=== PATIENT | male | born 1950 | race Caucasian/White ===

== ENCOUNTER 2019-12-03 07:59 | Day surgery (SDC) | payer MEDICARE, OTHER ==
[~2019-12-03] VITALS: Ht 180.3 cm; Wt 116.6 kg
[~2019-12-03 07:59] MED LIST: AMLO5 PO; Accupril20 MG PO; CIPR500 PO; CLIN300 PO; GLUCAGEN1 MG/1 ML IM; Glucosamine Ch1 EAC4 PO; HYDCHL12.5 PO; HYDCHL25 PO; HYDR1TAB94 PO; Humalog100 UNIT/3 SC; INSUASPI SC; INSULANPEN SC; Tylenol325 MG PO; XARELTO20 M1 PO; XARELTO20 MG PO
--- NOTE | 2019-12-03 09:48 | NUR ---
12/03/19 0948 Ashli [facility] (Monica 10ML SALINE INJECTED FOR ASCENDING COLON POLYP REMOVAL.
== END 2019-12-03 10:50 | disposition home or self-care (01) ==
LOC: ORSCSDS 07:59
PROVIDERS: Internal Medicine Gastroenterology
PROC: 0DBL8ZX Excision of Transverse Colon, Via Natural or Artificial Opening Endoscopic, Diagnostic (ICD-10-PCS; principal; 2019-12-03 09:45)
PROC: 0DBP8ZX Excision of Rectum, Via Natural or Artificial Opening Endoscopic, Diagnostic (ICD-10-PCS; principal; 2019-12-03 09:45)
PROC: 0DBK8ZX Excision of Ascending Colon, Via Natural or Artificial Opening Endoscopic, Diagnostic (ICD-10-PCS; principal; 2019-12-03 09:45)
DX: Z12.11 Encounter for screening for malignant neoplasm of colon (principal); D12.2 Benign neoplasm of ascending colon; D12.3 Benign neoplasm of transverse colon; K62.1 Rectal polyp; K57.30 Diverticulosis of large intestine without perforation or abscess without bleeding; I10 Essential (primary) hypertension; E11.9 Type 2 diabetes mellitus without complications; E78.5 Hyperlipidemia, unspecified; N18.4 Chronic kidney disease, stage 4 (severe); Z86.718 Personal history of other venous thrombosis and embolism; Z79.4 Long term (current) use of insulin; Z79.84 Long term (current) use of oral hypoglycemic drugs; Z79.899 Other long term (current) drug therapy
CPT/HCPCS: 82947; 88305; J2704; J7120

== ENCOUNTER 2020-09-17 18:07 | Inpatient (IN) | payer MEDICARE, OTHER ==
[~2020-09-17] VITALS: Ht 180.3 cm; Wt 107.0 kg
[~2020-09-17 18:07] MED LIST changes: +HUMALOG KW100 UNIT/1 SC; -Humalog100 UNIT/3 SC
[2020-09-17 18:39] LABS: Base Excess Venous -15.9 mmol/L; Bicarbonate Venous 13.3 mmol/L (24.0-30.0); PCO2 Venous 28.8 mmHg (38-42); PO2 Venous 46.9 mmHg (38-42); pH Blood Venous 7.22 (7.34-7.37)
[2020-09-17 18:42] LABS: BASOPHILS ABSOLUTE AUTO 0.04 K/mm3 (0.00-0.23); BASOPHILS PERCENT AUTO 0 % (0-2); EOSINOPHILS ABSOLUTE AUTO 0.02 K/mm3 (0.00-0.68); EOSINOPHILS PERCENT AUTO 0 % (0-6); Hematocrit 38.6 % (37.0-53.0); Hemoglobin 12.9 g/dL (13.5-17.5); IMMATURE GRAN ABSOLUTE AUTO 0.09 K/mm3 (0.00-0.10); IMMATURE GRAN PERCENT AUTO 1 % (0-1); LYMPHOCYTES PERCENT AUTO 6 % (21-46); MONOCYTES ABSOLUTE AUTO 0.99 K/mm3 (0.16-1.47); MONOCYTES PERCENT AUTO 7 % (4-13); Mean Corpuscular HGB 29.8 pg (26.0-34.0); Mean Corpuscular HGB Conc 33.4 g/dL (31.5-36.5); Mean Corpuscular Volume 89 fL (80-100); Mean Platelet Volume 10.2 fL (9.1-12.4); NEUTROPHILS ABSOLUTE AUTO 13.03 K/mm3 (1.96-9.15); NEUTROPHILS PERCENT AUTO 86 % (41-73); Platelet Count 272 K/mm3 (150-400); RDW Coefficient Variation 13.1 % (11.7-14.2); Red Blood Cell Count 4.33 M/mm3 (4.30-5.90); White Blood Cell Count 15.07 K/mm3 (4.00-11.30)
[2020-09-17 19:03] LABS: Albumin, Blood 2.8 g/dL (3.4-5.0); Albumin/Globulin Ratio 0.7 (0.8-1.8); Beta-hydroxybutyrate 32.6 mg/dL (0.2-2.8); Bilirubin, Total 0.5 mg/dL (0.1-1.0); Calcium, Blood 9.1 mg/dL (8.5-10.1); Creatinine, Blood 3.83 mg/dL (0.60-1.20); Globulin, Blood 4.1 g/dL (2.2-4.0); Potassium, Blood 4.7 mmol/L (3.5-5.5); Total Protein, Blood 6.9 g/dL (6.4-8.2)
[2020-09-17 20:12] LABS: International Normalized Ratio 1.22; Prothrombin Time Results 12.9 Sec (9.7-11.5)
[2020-09-17 20:29] LABS: Source, Urine Clean Catch
[2020-09-17 20:31] LABS: Bilirubin, Urine Neg (Neg); Blood, Urine 5+ (Neg); Glucose Qualitative, Urine 4+ (Neg); Ketones, Urine 2+ (Neg); Leukocyte Esterase, Urine 3+ (Neg); Nitrite, Urine Neg (Neg); Protein, Urine 2+ (Neg); Specific Gravity, Urine 1.015 (1.003-1.022); Urobilinogen, Urine NORM (Normal)
[2020-09-17 20:32] LABS: Appearance, Urine Hazy (Clear); Color, Urine Yellow (P-Yellow)
[2020-09-17 20:33] LABS: Squamous Epithelial Cells Rare /hpf (Few)
[2020-09-17 20:34] LABS: Bacteria Few /hpf
[2020-09-17] MEDS ORDERED: CALC.25 PO (20:56)
--- NOTE | 2020-09-17 23:15 | NUR ---
PT ARRIVES TO ICU VIA GURNEY FROM ER FOR DX DKA, STANDS TO TRANSFER TO BED WITH STEADY GAIT AND TOLERATES WELL, DENIES DIZZINESS/VERTIGO, DENIES N/V, DENIES CP/PRESSURE, DENIES SOB/DYSPNEA, STATES THAT ABD FEELS BLOATED. SEE ADMISSION ASSESSMENT AND HX
[2020-09-18] MEDS ORDERED: ERGO400 PO (00:01)
[2020-09-18] MEDS ORDERED: GLUCHON PO (00:02)
[2020-09-18 00:48] LABS: Bun/Creatinine Ratio 24.7 (12.0-20.0); Calcium, Blood 8.7 mg/dL (8.5-10.1); Creatinine, Blood 3.72 mg/dL (0.60-1.20); Potassium, Blood 3.9 mmol/L (3.5-5.5)
[2020-09-18 05:57] LABS: BASOPHILS ABSOLUTE AUTO 0.03 K/mm3 (0.00-0.23); BASOPHILS PERCENT AUTO 0 % (0-2); EOSINOPHILS PERCENT AUTO 1 % (0-6); Hematocrit 34.6 % (37.0-53.0); Hemoglobin 11.8 g/dL (13.5-17.5); IMMATURE GRAN ABSOLUTE AUTO 0.06 K/mm3 (0.00-0.10); IMMATURE GRAN PERCENT AUTO 1 % (0-1); LYMPHOCYTES ABSOLUTE AUTO 0.84 K/mm3 (0.84-5.20); LYMPHOCYTES PERCENT AUTO 7 % (21-46); MONOCYTES ABSOLUTE AUTO 0.85 K/mm3 (0.16-1.47); MONOCYTES PERCENT AUTO 7 % (4-13); Mean Corpuscular HGB 29.6 pg (26.0-34.0); Mean Corpuscular HGB Conc 34.1 g/dL (31.5-36.5); Mean Corpuscular Volume 87 fL (80-100); Mean Platelet Volume 9.6 fL (9.1-12.4); NEUTROPHILS ABSOLUTE AUTO 9.88 K/mm3 (1.96-9.15); NEUTROPHILS PERCENT AUTO 84 % (41-73); Platelet Count 219 K/mm3 (150-400); RDW Coefficient Variation 12.9 % (11.7-14.2); RDW Standard Deviation 41.2 fL (35.1-46.3); Red Blood Cell Count 3.98 M/mm3 (4.30-5.90); White Blood Cell Count 11.76 K/mm3 (4.00-11.30)
[2020-09-18 06:16] LABS: Albumin, Blood 2.2 g/dL (3.4-5.0); Albumin/Globulin Ratio 0.6 (0.8-1.8); Bilirubin, Total 0.3 mg/dL (0.1-1.0); Bun/Creatinine Ratio 26.6 (12.0-20.0); Calcium, Blood 8.5 mg/dL (8.5-10.1); Creatinine, Blood 3.54 mg/dL (0.60-1.20); Potassium, Blood 3.8 mmol/L (3.5-5.5); Total Protein, Blood 6.2 g/dL (6.4-8.2)
--- NOTE | 2020-09-18 06:23 | NUR ---
PT NEW ADMIT THIS SHIFT FOR DKA, INSULIN GTT TITRATED UP FROM 4 UNITS/HR ON ARRIVAL FROM ER TO 6.5 UNITS/HR OF THIS TIME, BLOOD GLUCOSE LEVELS HAVE IMPROVED TO LESS THAN 220 AND D5 1/2 NS IS NOW INFUSING AT 100 ML/HR. PT DOES COMPLAIN OF PAIN TO RIGHT SHOULDER THAT STARTED APPROXIMATELY 1 WEEK PRIOR TO ADMIT FOR WHICH HE USES AN OVER THE COUNTER TOPICAL CREAM WELL TYLENOL FOR AT HOME, TYLENOL IS ORDERED, ADMINISTERED X 1, PT DID REPORT ADEQUATE RELIEF WITH TYLENOL AND POSITIONING RIGHT ARM UP ON PILLOW.
--- NOTE | 2020-09-18 08:10 | NUR ---
INITIAL ASSESSMENT PATIENT ALERT AND ORIENTED X 4, AFEBRILE. PATIENT STATES THAT HE HAS A BURSA IN R SHOULDER AND THAT IT HAS BEEN CAUSING HIM PAIN THE LAST WEEK. PATIENT REPORTS CHRONIC N/T TO BILAT FINGERS. PATIENT SBA TO BSC. RESP WNL. PATIENT IN ST WITH PACS. HR LOW 100S TO 1-TEENS. SBP 120S TO 160S. 2+ PITTING EDEMA NOTED IN BLES. ABDOMEN MODERATELY DISTENDED, FIRM, WITH HYPOACTIVE BS NOTED. LAST OF LAST BM YESTERDAY. URINARY FREQUENCY NOTED. UTI +. PATIENT HAS BURNED AREA ON R MIDDLE FINGER. PATIENT STATES HE THINKS HE BURNED IT ON A STOVE A FEW WEEKS AGO. D5W 1/2 NS INFUSING AT 100 MLS/ HOUR, INSULIN DRIP AT 4 UNITS/ HOUR. BED LOW, CALL LIGHT IN REACH. WILL CONTINUE TO MONITOR PATIENT FREQUENTLY THROUGHOUT SHIFT.
--- NOTE | 2020-09-18 08:30 | NUR ---
DR. PEACOCK CALLED AND UPDATED ON PATIENT STATUS. INFORMED THAT DR. BONNER PLACED SS INSULIN ORDERS. ORDERS RECEIVED TO DC FLUIDS AND GIVEN LONG ACTING INSULIN.
[2020-09-18 10:17] LABS: Albumin, Blood 2.1 g/dL (3.4-5.0); Anion Gap 12 mmol/L (6-16); Blood Urea Nitrogen 100 mg/dL (8-24); Bun/Creatinine Ratio 28.9 (12.0-20.0); CO2, Blood 16 mmol/L (21-32); Calcium, Blood 8.6 mg/dL (8.5-10.1); Chloride, Blood 104 mmol/L (98-108); Creatinine, Blood 3.46 mg/dL (0.60-1.20); Glomerular Filtration Rate 19 (60-); Glucose, Blood 264 mg/dL (70-99); Magnesium, Blood 1.9 mg/dL (1.6-2.4); Phosphorus, Blood 3.5 mg/dL (2.5-4.9); Potassium, Blood 3.9 mmol/L (3.5-5.5); Sodium, Blood 132 mmol/L (136-145)
--- NOTE | 2020-09-18 11:40 | NUR ---
DR. ROBERT HERE TO SEE PATIENT. DOCTOR UPDATED ON PATIENT AND BLOOD SUGARS. ORDERS RECEIVED.
--- NOTE | 2020-09-18 12:00 | NUR ---
PATIENT AFEBRILE. NO COMPLAINTS. HR IN THE LOW 100S. SBP 130S TO 140S. INSULIN LISPRO STARTED. INSULIN DRIP TURNED OFF. NO OTHER ACUTE CHANGES TO NOTE ON AT THIS TIME. WILL CONTINUE TO MONITOR.
[2020-09-18 12:42] LABS: Bun/Creatinine Ratio 32.3 (12.0-20.0); Calcium, Blood 8.3 mg/dL (8.5-10.1); Creatinine, Blood 3.28 mg/dL (0.60-1.20); Potassium, Blood 4.1 mmol/L (3.5-5.5)
--- NOTE | 2020-09-18 16:38 | NUR ---
CALLED THE AUTOMOBILE DETAILER FOR REPORT, WILL CALL ME BACK FOR A REPORT.
--- NOTE | 2020-09-18 16:45 | NUR ---
DR. ROBERT CALLED AND INFORMED OF SBP IN 170S. ALSO INFORMED OF BLOOD SUGAR OF 417. ORDERS RECEIVED.
--- NOTE | 2020-09-18 17:15 | NUR ---
SHIFT SUMMARY PATIENT REMAINED ALERT AND ORIENTED X 4, AFEBRILE. PATIENT GIVEN PRN TYLENOL OT FOR COMPLAINT OF R SHOULDER PAIN. PATIENT AMBULATED WELL WITH SBA. PATIENT REMAINED SATTING 90% AND GREATER ON RA. PATIENT REMAINED IN ST WITH PACS. HR LOW 100S TO 120S. SBP LOW 100S TO 170S. PATIENT STARTED BACK ON ONE OF HIS HOME BP MEDICATIONS AND THEN ALSO STARTED ON PRN HYDRALAZINE FOR SBP OVER 150. PRN HYDRALAZINE GIVEN OT. NO BM THIS SHIFT. PATIENT HAD GOOD APPETITE. GOOD URINE OUTPUT. NO CHANGE IN SKIN. PATIENT RECEIVED ANCEF FOR ANTIBIOTIC. FLUIDS CHANGED FROM D5W 1/2 NS TO NS AT 75 MLS/ HOUR. INSULIN DRIP ON THIS AM AND HAS NOW BEEN DC'D. LONG ACTING INSULIN AND INSULIN LISPRO STARTED THIS SHIFT. BLOOD SUGARS CREPT UP FROM 160 THIS AM TO 417. DOCTOR PLACED ADDITIONAL INSULIN ORDERS. SON CAME TO VISIT PATIENT THIS SHIFT. PATIENT HAS NO COMPLAINTS AT THIS TIME.
--- NOTE | 2020-09-18 17:24 | NUR ---
PATIENT SUCCESSFULLY TRANSFERRED TO MEDICAL FLOOR, ROOM 324. SON AT SIDE. BELONGINGS SENT WITH PATIENT.
--- NOTE | 2020-09-18 17:46 | NUR ---
PT IS AN ICU TRANSFERRED TO [facility] [place] [id number]; AOX4; CALLS APPROPRIATELY. 1 STANDBY ASSIST; MILDLY WEAK. PT HAS +2 BLE EDEMA. PT ON RA. PT BP ELAVATED PRIOR TO COMING HERE; AUTOMOTIVE EX[employer] EMISSIONS TECHNICIAN ADMINISTERED HYDRALAZINE, BP IS NOW LOW 100'S. PT CBG IS ELEVATED TO 400'S PER AUTOMOTIVE EXHAUST EMISSIONS TECHNICIAN. PT HAS HIGH SLIDING SCALE AND LONG ACTING INSULIN. PT PMH; DM TYPE 1, DIABETIC NEPHROSCLEROSIS WITH CKD, NEUROPATHY, HX DVT- PT XARELTO; RIGHT SHOULDER PAIN DUE TO BURSITIS; PROSTATE CANCER, AND HIATAL HERNIA. PT ON CARDIAC DIET. POSITIVE MSSA ON URINE AND UTI; PT ON ANCEF. BED IS IN THE LOWEST POSITION AND CALL LIGHT WITHIN REACH. PT HAS A SON, DAUGHTER AND .
--- NOTE | 2020-09-18 18:20 | NUR ---
PT ON TELE NSR @116 AT REST
[2020-09-18 18:47] LABS: Bun/Creatinine Ratio 33.2 (12.0-20.0); Calcium, Blood 8.3 mg/dL (8.5-10.1); Creatinine, Blood 3.46 mg/dL (0.60-1.20); Potassium, Blood 4.1 mmol/L (3.5-5.5)
[2020-09-19 00:18] LABS: Albumin, Blood 1.9 g/dL (3.4-5.0); Anion Gap 12 mmol/L (6-16); Blood Urea Nitrogen 126 mg/dL (8-24); Bun/Creatinine Ratio 35.1 (12.0-20.0); CO2, Blood 15 mmol/L (21-32); Chloride, Blood 101 mmol/L (98-108); Creatinine, Blood 3.59 mg/dL (0.60-1.20); Glomerular Filtration Rate 18 (60-); Glucose, Blood 424 mg/dL (70-99); Phosphorus, Blood 2.7 mg/dL (2.5-4.9); Sodium, Blood 128 mmol/L (136-145)
--- NOTE | 2020-09-19 04:40 | NUR ---
SHIFT SUMMARY PT IS A/O X4. SBA UP TO BATHROOM. AMBULATED IN HALLWAY THIS SHIFT WITH GARBAGE TRUCK HELPER USING FWW. TOLERATING PO INTAKE AND VOIDING. IV FLUIDS INFUSING OVERNIGHT PER ORDERS. CBG HAVE BEEN IN THE 400'S; SPOKE WITH PHYSICIAN REGARDING 2100 HUMULOG - GAVE 18 UNITS PER ORDER. WHEN RECHECK WAS STILL ELEVATED, PHYSICIAN NOTIFIED AND PT GIVEN 30 UNITS LANTUS PER ORDER. HR HAS BEEN ELEVATED IN LOW 100'S, INCREASING DURING ACTIVITY. PT RESTING IN BED AT THIS TIME WITH CALL LIGHT IN REACH.
[2020-09-19 05:58] LABS: BASOPHILS ABSOLUTE AUTO 0.04 K/mm3 (0.00-0.23); BASOPHILS PERCENT AUTO 0 % (0-2); EOSINOPHILS ABSOLUTE AUTO 0.14 K/mm3 (0.00-0.68); EOSINOPHILS PERCENT AUTO 1 % (0-6); Hematocrit 28.1 % (37.0-53.0); Hemoglobin 9.6 g/dL (13.5-17.5); IMMATURE GRAN ABSOLUTE AUTO 0.11 K/mm3 (0.00-0.10); IMMATURE GRAN PERCENT AUTO 1 % (0-1); LYMPHOCYTES ABSOLUTE AUTO 1.22 K/mm3 (0.84-5.20); LYMPHOCYTES PERCENT AUTO 11 % (21-46); MONOCYTES ABSOLUTE AUTO 0.78 K/mm3 (0.16-1.47); MONOCYTES PERCENT AUTO 7 % (4-13); Mean Corpuscular HGB 30.1 pg (26.0-34.0); Mean Corpuscular HGB Conc 34.2 g/dL (31.5-36.5); Mean Corpuscular Volume 88 fL (80-100); Mean Platelet Volume 10.2 fL (9.1-12.4); NEUTROPHILS ABSOLUTE AUTO 9.07 K/mm3 (1.96-9.15); NEUTROPHILS PERCENT AUTO 80 % (41-73); Platelet Count 229 K/mm3 (150-400); RDW Standard Deviation 42.1 fL (35.1-46.3); Red Blood Cell Count 3.19 M/mm3 (4.30-5.90); White Blood Cell Count 11.36 K/mm3 (4.00-11.30)
[2020-09-19 06:06] LABS: Albumin, Blood 1.9 g/dL (3.4-5.0); Albumin/Globulin Ratio 0.5 (0.8-1.8); Bilirubin, Total 0.3 mg/dL (0.1-1.0); Bun/Creatinine Ratio 37.6 (12.0-20.0); Calcium, Blood 8.1 mg/dL (8.5-10.1); Creatinine, Blood 3.51 mg/dL (0.60-1.20); Globulin, Blood 3.6 g/dL (2.2-4.0); Phosphorus, Blood 2.9 mg/dL (2.5-4.9); Potassium, Blood 4.2 mmol/L (3.5-5.5); Total Protein, Blood 5.5 g/dL (6.4-8.2)
--- NOTE | 2020-09-19 06:42 | NUR ---
HOSPITALIST PAGED REGARDING AM BLOOD GLUCOSE. AWAITING CALL BACK.
--- NOTE | 2020-09-19 08:00 | NUR ---
0800 PT CBG WAS 399; PT RECEIVED THE MORNING DOSE OF SHORT ACTING TOTAL OF 25 UNITS OF HUMALOG. RECHECKED THE BG AFTER AN HOUR; CBG CAME UP TO 449; CALLED THE DR AND INFORMED THE DR. DR CHANGED THE LANTUS FROM 30 UNITS TO 40 UNITS. PT RECEIVED A DOSE OF 40 UNITS OF LANTUS.
--- NOTE | 2020-09-19 17:15 | NUR ---
SHIFT SUMMARY PT AOX4; CALLS APPROPRIATELY. PT HAD MULTIPLE EPISODES OF HIGH BLOOD SUGAR OF 400 LAST NIGHT AND TODAY. POULTRY BONER NURSE ADMINISTERED 30 OF LONG ACTING. IN AM; I CALLED THE DR AND RECEIVED A CHANGE OF DOSAGE FOR THE INSULIN SHORT AND LONG ACTING - SEE EMAR. PT CBG DOWN TO 294; PT REQUESTED 25 UNITS OF INSULIN FOR DINNER INSTEAD OF 30. PT USUALLY MANAGES HIS INSULIN AND HE IS TYPE 1 DM. PT HAD A CONSULT FOR DR DORADO TODAY AND WILL HAVE AN ORTHO CONSULT FOR HIS HAND THAT IS A VERY PAINFUL. PT ALSO HAS POSITIVE BLOOD CULTURE TODAY; PT INFUSING VANCOMYCIN. PT ALSO HAD AN ECHO TODAY TO SEE FOR VEGETATION. VSS. DENIES CP OR SOB. PT HAS A LITTLE BIT OF UNSTEADY GAIT- 1P ASSIST. ON RA AND ON TELE NS TACH @107. PT IS NOW ON RECLINER. CALL LIGHT WITHIN REACH.
--- NOTE | 2020-09-19 21:05 | NUR ---
IS IN REACH. REPOSITIONED IN BED.
--- NOTE | 2020-09-20 00:08 | NUR ---
PT PAIN NOT CONTROLLED WITH PRN TYLENOL. STATES HIS R SHOULDER AND NECK ARE BOTHERING HIM TO THE POINT OF NOT BEING ABLE TO GET SOME SLEEP. RN TO CALL MD FOR ONE TIME PAIN MED NOW - ORDERED AND GIVEN. THEN PT CONCERNED BLOOD SUGAR MIGHT BE TOO LOW - RECHECKED CBG PER PT REQUEST. CBG READS 168. WILL CONTINUE TO MONITOR. VSS.
[2020-09-20 04:47] LABS: BASOPHILS ABSOLUTE AUTO 0.04 K/mm3 (0.00-0.23); BASOPHILS PERCENT AUTO 0 % (0-2); EOSINOPHILS ABSOLUTE AUTO 0.11 K/mm3 (0.00-0.68); EOSINOPHILS PERCENT AUTO 1 % (0-6); Hematocrit 22.6 % (37.0-53.0); Hemoglobin 7.6 g/dL (13.5-17.5); IMMATURE GRAN ABSOLUTE AUTO 0.14 K/mm3 (0.00-0.10); IMMATURE GRAN PERCENT AUTO 1 % (0-1); LYMPHOCYTES ABSOLUTE AUTO 0.84 K/mm3 (0.84-5.20); LYMPHOCYTES PERCENT AUTO 8 % (21-46); MONOCYTES ABSOLUTE AUTO 0.52 K/mm3 (0.16-1.47); MONOCYTES PERCENT AUTO 5 % (4-13); Mean Corpuscular HGB 29.8 pg (26.0-34.0); Mean Corpuscular HGB Conc 33.6 g/dL (31.5-36.5); Mean Corpuscular Volume 89 fL (80-100); Mean Platelet Volume 10.3 fL (9.1-12.4); NEUTROPHILS ABSOLUTE AUTO 8.79 K/mm3 (1.96-9.15); NEUTROPHILS PERCENT AUTO 84 % (41-73); Platelet Count 252 K/mm3 (150-400); RDW Standard Deviation 42.1 fL (35.1-46.3); Red Blood Cell Count 2.55 M/mm3 (4.30-5.90); White Blood Cell Count 10.44 K/mm3 (4.00-11.30)
[2020-09-20 05:16] LABS: Alanine Aminotransfer (ALT/SGP 16 U/L (12-78); Albumin, Blood 1.9 g/dL (3.4-5.0); Albumin/Globulin Ratio 0.6 (0.8-1.8); Alk Phos 126 U/L (50-136); Anion Gap 12 mmol/L (6-16); Aspartate Aminotrans (AST/SGOT 21 U/L (12-37); Bilirubin, Total 0.4 mg/dL (0.1-1.0); Blood Urea Nitrogen 145 mg/dL (8-24); Bun/Creatinine Ratio 42.9 (12.0-20.0); CO2, Blood 14 mmol/L (21-32); Chloride, Blood 104 mmol/L (98-108); Creatinine, Blood 3.38 mg/dL (0.60-1.20); Globulin, Blood 3.4 g/dL (2.2-4.0); Glomerular Filtration Rate 19 (60-); Glucose, Blood 266 mg/dL (70-99); Magnesium, Blood 1.8 mg/dL (1.6-2.4); Phosphorus, Blood 3.6 mg/dL (2.5-4.9); Potassium, Blood 4.3 mmol/L (3.5-5.5); Sodium, Blood 130 mmol/L (136-145); Total Protein, Blood 5.3 g/dL (6.4-8.2); Vancomycin, Random 14.9 ug/mL
--- NOTE | 2020-09-20 05:55 | NUR ---
SHIFT SUMMARY PT DID NOT GET MUCH REST THROUGH NIGHT. C/O FREQUENT AND CONTINUOUS PAIN FROM R SHOULDER AND NECK. SEE EMAR FOR MED AMINISTRATIONS. ALERT AND ORIENTED - ABLE TO MAKE NEEDS KNOWN. TELE NSR/SINUS TACH - NO C/O CHEST PAIN. SATS >93% ON ROOM AIR. STAND BY ASSIST WITH AMBULATION TO BATHROOM. VOIDED MULTIPLE TIMES - SEE I/O CHART. NO BM. MORNING LABS SHOW DROP IN H/H, AND LOW ALBUMIN - NOTIFIED MD - MD INSTRUCTED TO CONTINUE TO MONITOR. VSS. CALL LIGHT WITHIN REACH, BED IN LOWEST POSITION. WILL CONTINUE TO MONITOR.
--- NOTE | 2020-09-20 17:17 | NUR ---
SHIFT SUMMARY PT AWAKE DURING SHIFT REPORT. PT ASSISTED UP TO CHAIR AT BS WITH 1P ASSIST. PT IS MORBIDLY OBESE. ADMITTED FOR DKA. INSULIN ADJUSTED BY DR PEACOCK, BUT PT'S CBG'S ELEVATED FOR MOST OF THE DAY TRYING TO GET UNDER CONTROL. CBG'S COMING DOWN THIS EVENING; SEE CHART. PT C/O PAIN TO R SHOULDER THIS AM, REPORTING HX OF BURSITIS. DECLINED NEEDING PAIN MEDICATION; "NOTHING NEW". PT LATER REPORTED PAIN TO DR PEACOCK WHEN HE CAME TO SEE HIM. NEW ORDERS PLACED TO US R SHOULDER; SEE CHART. IVF'S CHANGED THIS AM. IV ABX ADMIN PER EMAR. PT ASSISTED TO BTHRM MULTIPLE TIMES TODAY; 1P SBA. PT VOIDING AND EATING WELL. DAUGHTER IN TO SEE PT TODAY. PT TALKING ON PHONE MULTIPLE TIMES. NAPPING IN CHAIR. DENIED FURTHER NEEDS. CALL LT IN REACH.
--- NOTE | 2020-09-20 20:15 | NUR ---
CBG 106; DR DIEZ NOTIFIED RESULTS AND PAST CBG FOR DAY SHIFT TODAY; ORDERS RECEIVED FOR SEMGLEE 20 UNITS NOW ONLY; DO NOT GIVE 50 UNITS SCHEDULED OF SEMGLEE.
--- NOTE | 2020-09-21 04:05 | NUR ---
SHIFT SUMMARY: 69 Y/O OBESE MALE RESTED COMFORTABLY ALL SHIFT IN BEDSIDE LOUNGE CHAIR WITH BILATERAL LOWER EXTREMITIES ELEVATED IN CHAIR; PT SHOWERED THIS SHIFT X 1 STANDBY ASSIST; PT ABLE WALK BATHROOM AND BACK SLOWLY WITHOUT ISSUE; PT HAS BURN TO RIGHT HAND #3 DIGIT THAT MEASURES 2X2 CM AND OPEN TO AIR--SCABBED OVER (PT VOICED HE BURNED IT APPROXIMATELY 3 WEEKS AGO WHILE COOKING AND DID NOT REALIZE IT AT THE TIME); PT HAS NUMBNESS AND TINGLING TO BILATERAL HANDS/FINGERS; DENIES PAIN OR NAUSEA; PTS CBG LAST PM WAS 106 WITH HOSPITALIST NOTIFIED AND GIVEN 20 UNITS SEMGLESS VERSUS 5O UNITS ORIGINALLY ORDERED; PT EAGER TO REURN HOME; ALERT AND ORIENTED X 4; CALL LIGHT AT SIDE.
[2020-09-21 05:24] LABS: BASOPHILS ABSOLUTE AUTO 0.05 K/mm3 (0.00-0.23); BASOPHILS PERCENT AUTO 0 % (0-2); EOSINOPHILS ABSOLUTE AUTO 0.28 K/mm3 (0.00-0.68); EOSINOPHILS PERCENT AUTO 3 % (0-6); Hematocrit 21.6 % (37.0-53.0); Hemoglobin 7.3 g/dL (13.5-17.5); IMMATURE GRAN ABSOLUTE AUTO 0.28 K/mm3 (0.00-0.10); IMMATURE GRAN PERCENT AUTO 3 % (0-1); LYMPHOCYTES ABSOLUTE AUTO 1.31 K/mm3 (0.84-5.20); LYMPHOCYTES PERCENT AUTO 12 % (21-46); MONOCYTES ABSOLUTE AUTO 0.84 K/mm3 (0.16-1.47); MONOCYTES PERCENT AUTO 8 % (4-13); Mean Corpuscular HGB 30.4 pg (26.0-34.0); Mean Corpuscular HGB Conc 33.8 g/dL (31.5-36.5); Mean Corpuscular Volume 90 fL (80-100); Mean Platelet Volume 10.2 fL (9.1-12.4); NEUTROPHILS ABSOLUTE AUTO 8.49 K/mm3 (1.96-9.15); NEUTROPHILS PERCENT AUTO 76 % (41-73); Platelet Count 275 K/mm3 (150-400); RDW Coefficient Variation 13.2 % (11.7-14.2); RDW Standard Deviation 43.9 fL (35.1-46.3); White Blood Cell Count 11.25 K/mm3 (4.00-11.30)
[2020-09-21 05:49] LABS: Anion Gap 12 mmol/L (6-16); CO2, Blood 15 mmol/L (21-32); Calcium, Blood 8.3 mg/dL (8.5-10.1); Chloride, Blood 106 mmol/L (98-108); Creatinine, Blood 3.43 mg/dL (0.60-1.20); Glomerular Filtration Rate 19 (60-); Glucose, Blood 172 mg/dL (70-99); Sodium, Blood 133 mmol/L (136-145); Vancomycin, Random 17.8 ug/mL
[2020-09-21 06:01] LABS: Blood Urea Nitrogen 147 mg/dL (8-24); Bun/Creatinine Ratio 42.9 (12.0-20.0)
--- NOTE | 2020-09-21 13:28 | NUR ---
PT AWAKE SITTING IN RECLINER AT BS AT START OF SHIFT. PT REPORTED THAT HE HAD SLEPT IN RECLINER LAST NIGHT, D/T BEING MORE COMFORTABLE. PT'S OVERALL CBG'S CONTINUE TO IMPROVE WITH INSULIN ADJUSTMENTS; SEE CHART. NO SS INSULIN COVERAGE NEEDED AFTER LUNCH TODAY AND MINIMAL TO NONE AFTER MEALS YESTERDAY. PT ALSO APPEARS TO BE FEELING BETTER HE HAS BEEN INDEPENDENT TO BTHRM THRU OUT THE NIGHT AND ALL TODAY, EVEN WITH IV PUMP AND TELE LINES. DR PEACOCK IN TO SEE PT THIS AM. PT TO D/C TO HOME TODAY. HVAC JOURNEYMAN IN TO DISCUSS PLAN OF CARE AT D/C WELL CALL PT'S . THIS RN CALLED PT'S THIS AM AND PROVIDED UPDATE ON PT STATUS WELL. PT MEDICATED WITH TYLENOL FOR R SHOULDER PAIN, PER . PT HAD BEEN DECLINING PAIN MEDICATION HE STATED THAT HE HAS LIVED WITH THIS FOR A LONG TIME. PT GRATEFUL FOR TYLENOL AND LATER REPORTED IT EFFECTIVE. PT CONTINUES TO SIT IN RECLINER AT BS, WATCHING TV. CALL LT IN REACH.
[2020-09-21] MEDS ORDERED: CLIN150 PO (14:33)
[2020-09-21] MEDS ORDERED: ARANESP SC (14:34)
[2020-09-21] MEDS ORDERED: METO25ER PO (14:37)
[2020-09-21] MEDS ORDERED: VITAMIN D3400 UNI1 PO (14:37)
[2020-09-21 14:58] LABS: Hematocrit 18.7 % (37.0-53.0); Hemoglobin 6.4 g/dL (13.5-17.5)
--- NOTE | 2020-09-21 18:42 | NUR ---
DR DORADO IN TO SEE PT PRIOR TO D/C. DR PEACOCK ALSO CALLED REQUESTING PT BE NOTIFIED OF STAT H/H PRIOR TO D/C. IF STABLE, PT WOULD CONTINUE D/C PLANS, BUT IF H/H DROPPED AGAIN, PT TO STAY THE NIGHT AND RECEIVE [address] PEACOCK NOTIFIED WHEN H/H RESULTS RETURNED. NEW ORDERS RECEIVED. PT AND FAMILY UPDATED ON NEW ORDERS. PT REMAINS IN RECLINER, WATCHING TV. BLOOD SLIPS VERIFIED AND SENT TO LAB. PRESENTLY WAITING FOR BLOOD TO BE SENT FROM BLOOD BANK. REPORT TO BE GIVEN TO ONCOMING RN. CALL LT IN REACH.
--- NOTE | 2020-09-21 19:00 | NUR ---
ASSUMED CARE RECEIVED REPORT FROM KARLEE KAMINSKI. ASSUMED CARE OF PT. PT IN CHAIR, NO S/S ACUTE DISTRESS NOTED. AWAITING START OF PRBCS, VS OBTAINED. CALL LIGHT, POSSESSIONS IN REACH, CONTINUE TO MONITOR.
[2020-09-22 06:00] LABS: Vancomycin, Random 20.9 ug/mL
--- NOTE | 2020-09-22 06:15 | NUR ---
SHIFT SUMMARY PT ASLEEP, NO S/S ACUTE DISTRESS NOTED. WAS MONITORED EVERY 1-2 HOURS WITH NEEDS MET. PT TOLERATED 2 UNITS PRBCS WELL, W/O S/S REACTION. VS REVIEWED, WNL, 02 SATS STABLE ON RA. PT DENIES SHOULDER PAIN. DENIES NEEDS. CALL LIGHT, POSSESSIONS IN REACH, RECLINING IN CHAIR. WCTM, REPORT OFF TO ONCOMING RN.
[2020-09-22 07:39] LABS: BASOPHILS ABSOLUTE AUTO 0.05 K/mm3 (0.00-0.23); BASOPHILS PERCENT AUTO 1 % (0-2); EOSINOPHILS ABSOLUTE AUTO 0.17 K/mm3 (0.00-0.68); EOSINOPHILS PERCENT AUTO 2 % (0-6); Hematocrit 23.8 % (37.0-53.0); Hemoglobin 8.5 g/dL (13.5-17.5); IMMATURE GRAN ABSOLUTE AUTO 0.33 K/mm3 (0.00-0.10); IMMATURE GRAN PERCENT AUTO 4 % (0-1); LYMPHOCYTES ABSOLUTE AUTO 1.01 K/mm3 (0.84-5.20); LYMPHOCYTES PERCENT AUTO 12 % (21-46); MONOCYTES ABSOLUTE AUTO 0.73 K/mm3 (0.16-1.47); MONOCYTES PERCENT AUTO 9 % (4-13); Mean Corpuscular HGB 30.2 pg (26.0-34.0); Mean Corpuscular HGB Conc 35.7 g/dL (31.5-36.5); Mean Platelet Volume 10.5 fL (9.1-12.4); NEUTROPHILS ABSOLUTE AUTO 5.83 K/mm3 (1.96-9.15); NEUTROPHILS PERCENT AUTO 72 % (41-73); Platelet Count 262 K/mm3 (150-400); RDW Coefficient Variation 12.9 % (11.7-14.2); Red Blood Cell Count 2.81 M/mm3 (4.30-5.90); White Blood Cell Count 8.12 K/mm3 (4.00-11.30)
[2020-09-22 07:45] LABS: Mean Corpuscular Volume 85 fL (80-100)
[2020-09-22 08:06] LABS: Albumin, Blood 2.1 g/dL (3.4-5.0); Anion Gap 11 mmol/L (6-16); Blood Urea Nitrogen 121 mg/dL (8-24); Bun/Creatinine Ratio 41.6 (12.0-20.0); CO2, Blood 18 mmol/L (21-32); Calcium, Blood 8.1 mg/dL (8.5-10.1); Chloride, Blood 109 mmol/L (98-108); Creatinine, Blood 2.91 mg/dL (0.60-1.20); Glomerular Filtration Rate 23 (60-); Glucose, Blood 216 mg/dL (70-99); Potassium, Blood 3.5 mmol/L (3.5-5.5); Sodium, Blood 138 mmol/L (136-145)
--- NOTE | 2020-09-22 15:05 | NUR ---
INSULIN CLARIFICATION THIS RN CALLED DR. PEACOCK TO CLARIFY INSULIN HUMALOG DOSE OF 30 UNITS AC AT APPROXIMATELY [address] PEACOCK FELT 30 UNITS WOULD STILL BE OKAY WITH THE PT'S BG OF 148. THIS RN WILL CONTINUE TO MONITOR PT STATUS.
--- NOTE | 2020-09-22 15:26 | NUR ---
PT BLOOD GLUCOSE PT WAS WORKING WITH PT AT APPROXIMATELY 1445. PT NOTIFIED THIS RN THAT PT STATED, "I FEEL LIKE MY BLOOD GLUCOSE IS LOW". THIS RN WENT TO PT ROOM AT APPROXIMATELY 1450 AND CHECKED BG WHICH READ 48. THIS RN GAVE PT ORANGE JUICE AND A STRAWBERRY YOGURT AND RECHECKED BG WHICH READ 50 AT APPROXIMATELY 1510. THIS RN GAVE PT A SECOND ORANGE JUICE AND WILL RECHECK BLOOD GLUCOSE. THIS RN WILL CONTINUE TO MONITOR PT STATUS.
[2020-09-22 17:24] LABS: Hematocrit 21.9 % (37.0-53.0); Hemoglobin 7.9 g/dL (13.5-17.5)
--- NOTE | 2020-09-22 17:30 | NUR ---
SHIFT SUMMARY PT IS AOX4. PT DENIES PAIN OTHER THAN SLIGHT ACHE OF RIGHT SHOULDER. PT DENIES N/V, SOB. PT IS INDEPENDENT IN ROOM. PT WORKED WITH PT/OT BUT HAD TO STOP SESSION DUE TO STATEMENT OF FEELING LIKE HE HAD LOW BG. PT BG CHECKED AND PT WAS HYPOGLYCEMIC-SEE NOTE. PT STABLE IN THE 110S THIS MAXI PRIOR TO DINNER. HEMOGLOBIN RECHECKED THIS MAXI AND PLAN IS TO EVALUATE RESULTS AND REASSESS. GI CONSULT CAME TO SEE PT THIS MAXI. PT IS IN CHAIR AWAITING DINNER. PT ATE WELL TODAY. PT'S GRANDDAUGHTER IN THIS EVENING. PT TELE DC'D PER ORDERS. PT IS IN CHAIR, CALL LIGHT IN REACH, BED IN LOW POSITION.
--- NOTE | 2020-09-23 04:39 | NUR ---
SHIFT SUMMARY ASSUMED CARE OF PT AT 1900. PT IS A/OX4, PT REPORTS CONSTANT N/T IN EXTREMITES. HEART SOUNDS REGULAR, LUNG SOUNDS CLEAR. PT WAS CONTINENT OF URINE. PT WAS INDEPENDENT IN HIS ROOM. PT TOOK SHOWER WITH SET UP ASSISTANCE. PT ASKED FOR HIS BLOOD SUGAR TO BE CHECKED DURING THE NIGHT, IT WAS NORMAL BUT PT ASKED FOR A SNACK BECAUSE HE FELT HE WAS GETTING LOW. PT HAS SMALL WOUND ON HIS R MIDDLE FINGER, PT STATES ITS FROM A BURN. NO OTHER ACUTE EVENTS DURING THE NIGHT. PT DID NOT SLEEP VERY MUCH DURING THE NIGHT. CALL LIGHT IN REACH, BED IN LOWEST POSITION.
[2020-09-23 05:43] LABS: BASOPHILS ABSOLUTE AUTO 0.04 K/mm3 (0.00-0.23); BASOPHILS PERCENT AUTO 0 % (0-2); EOSINOPHILS ABSOLUTE AUTO 0.18 K/mm3 (0.00-0.68); EOSINOPHILS PERCENT AUTO 2 % (0-6); Hematocrit 21.6 % (37.0-53.0); Hemoglobin 7.6 g/dL (13.5-17.5); IMMATURE GRAN ABSOLUTE AUTO 0.36 K/mm3 (0.00-0.10); IMMATURE GRAN PERCENT AUTO 4 % (0-1); LYMPHOCYTES ABSOLUTE AUTO 1.26 K/mm3 (0.84-5.20); LYMPHOCYTES PERCENT AUTO 13 % (21-46); MONOCYTES ABSOLUTE AUTO 0.98 K/mm3 (0.16-1.47); MONOCYTES PERCENT AUTO 10 % (4-13); Mean Corpuscular HGB 29.9 pg (26.0-34.0); Mean Corpuscular HGB Conc 35.2 g/dL (31.5-36.5); Mean Corpuscular Volume 85 fL (80-100); Mean Platelet Volume 9.8 fL (9.1-12.4); NEUTROPHILS ABSOLUTE AUTO 7.28 K/mm3 (1.96-9.15); NEUTROPHILS PERCENT AUTO 72 % (41-73); Platelet Count 335 K/mm3 (150-400); RDW Coefficient Variation 13.4 % (11.7-14.2); RDW Standard Deviation 41.3 fL (35.1-46.3); Red Blood Cell Count 2.54 M/mm3 (4.30-5.90)
[2020-09-23 05:57] LABS: Percent Saturation 9.2 % (20.0-50.0)
[2020-09-23 06:18] LABS: Alanine Aminotransfer (ALT/SGP 10 U/L (12-78); Albumin, Blood 2.1 g/dL (3.4-5.0); Albumin/Globulin Ratio 0.6 (0.8-1.8); Alk Phos 135 U/L (50-136); Anion Gap 11 mmol/L (6-16); Aspartate Aminotrans (AST/SGOT 18 U/L (12-37); Bilirubin, Total 0.3 mg/dL (0.1-1.0); Blood Urea Nitrogen 108 mg/dL (8-24); CO2, Blood 20 mmol/L (21-32); Calcium, Blood 8.3 mg/dL (8.5-10.1); Chloride, Blood 107 mmol/L (98-108); Creatinine, Blood 2.77 mg/dL (0.60-1.20); Globulin, Blood 3.6 g/dL (2.2-4.0); Glomerular Filtration Rate 24 (60-); Glucose, Blood 125 mg/dL (70-99); Potassium, Blood 3.7 mmol/L (3.5-5.5); Sodium, Blood 138 mmol/L (136-145); Total Protein, Blood 5.7 g/dL (6.4-8.2); Vancomycin, Random 17.2 ug/mL
[2020-09-23 11:16] LABS: Hematocrit 24.2 % (37.0-53.0); Hemoglobin 8.4 g/dL (13.5-17.5)
--- NOTE | 2020-09-23 19:25 | NUR ---
SHIFT SUMMARY PT IS AOX4. PT DENIES SOB, N/V, PAIN. PT HAD ONE EPISODE OF HYPOGLYCEMIA THIS SHIFT AND BG WAS 57. THIS RN GAVE PT X2 ORANGE JUICE AND HALF A SANDWHICH. PT GLUCOSE RAISED TO 143 AFTER DINNER. THIS RN SPOKE WITH DR. PEACOCK ABOUT PT'S BG AND RECIEVED ORDERS TO ADJUST INSULIN DOSAGE PER EMAR. PT HAVING FREQUENT BM'S SINCE MIDDAY TODAY. THIS RN VIEWED ONE STOOL WHICH APPEARED BLACK WITH GREEN UNDERTONE AND LOOSE. PT DID NOT WORK WITH PT/OT TODAY. PLAN IS TO RE-EVALUATE GI CONSULT TOMORROW SINCE THERE IS CURRENTLY NO ON-CALL GI PHYSICIAN. THIS RN SPOKE WITH PT'S TODAY VIA PHONE. PT HAD ONE VISITOR THIS MAXI. PT IS IN RECLINER WITH CALL LIGHT IN REACH.
--- NOTE | 2020-09-23 22:03 | NUR ---
RECEIVED VERBAL ORDER FROM DR. PEACOCK FOR HGB NOW AND IN AM AND TAGGED RBC IN AM.
[2020-09-23 22:28] LABS: Hematocrit 24.3 % (37.0-53.0); Hemoglobin 8.4 g/dL (13.5-17.5)
--- NOTE | 2020-09-24 04:00 | NUR ---
SHIFT SUMMARY: VSS. AFEB. 02 SAT 96% ON RA. NO SOB OBSERVED. ONGOING BLACK LIQUID STOOL. NO CHANGE TO HGB ON THE LAST DRAW. PT SCHEDULED FOR TAGGED RBC TEST IN AM. ABD SOFT, NONTENDER. DENIES N/V. PT LOST HIS BALANCE UPON STANDING UP FROM TOILET BUT REGAINED BALANCE WITHOUT INCIDENT. VSS AT THE TIME AND PT DENIES DIZZINESS OR LIGHTHEADEDNESS. ASKED THAT PT CALL FOR ASISST W/ ALL T/F AND AMB SINCE. PT IS AGREEABLE. WILL CONT TO MONITOR PT.
[2020-09-24 11:52] LABS: Hematocrit 21.6 % (37.0-53.0); Hemoglobin 7.5 g/dL (13.5-17.5)
--- NOTE | 2020-09-24 19:01 | NUR ---
PT RESTING IN ROOM/CHAIR AFTER DINNER, MEDS AND FAMILY VISIT. PT MAKES NO COMPLAINTS AT THIS TIME. PT HAS HAD MANY LOOSE TO FORMED STOOLS THROUGHOUT SHIFT. LAST BM HAD SCANT AMOUNT OF BLOOD IN TOILET. STAFF WILL CONT. TO MONITOR.
[2020-09-24 23:19] LABS: Hematocrit 20.9 % (37.0-53.0); Hemoglobin 7.2 g/dL (13.5-17.5)
[2020-09-25 04:34] LABS: BASOPHILS ABSOLUTE AUTO 0.05 K/mm3 (0.00-0.23); BASOPHILS PERCENT AUTO 1 % (0-2); EOSINOPHILS ABSOLUTE AUTO 0.25 K/mm3 (0.00-0.68); EOSINOPHILS PERCENT AUTO 2 % (0-6); Hematocrit 21.5 % (37.0-53.0); Hemoglobin 7.3 g/dL (13.5-17.5); IMMATURE GRAN ABSOLUTE AUTO 0.21 K/mm3 (0.00-0.10); IMMATURE GRAN PERCENT AUTO 2 % (0-1); LYMPHOCYTES ABSOLUTE AUTO 1.47 K/mm3 (0.84-5.20); LYMPHOCYTES PERCENT AUTO 14 % (21-46); MONOCYTES PERCENT AUTO 8 % (4-13); Mean Corpuscular HGB 30.3 pg (26.0-34.0); Mean Corpuscular Volume 89 fL (80-100); Mean Platelet Volume 9.7 fL (9.1-12.4); NEUTROPHILS ABSOLUTE AUTO 7.74 K/mm3 (1.96-9.15); NEUTROPHILS PERCENT AUTO 74 % (41-73); Platelet Count 392 K/mm3 (150-400); RDW Coefficient Variation 14.2 % (11.7-14.2); RDW Standard Deviation 46.1 fL (35.1-46.3); Red Blood Cell Count 2.41 M/mm3 (4.30-5.90); White Blood Cell Count 10.52 K/mm3 (4.00-11.30)
[2020-09-25 04:55] LABS: Albumin, Blood 1.9 g/dL (3.4-5.0); Anion Gap 10 mmol/L (6-16); Blood Urea Nitrogen 94 mg/dL (8-24); Bun/Creatinine Ratio 33.5 (12.0-20.0); CO2, Blood 19 mmol/L (21-32); Calcium, Blood 8.4 mg/dL (8.5-10.1); Chloride, Blood 109 mmol/L (98-108); Creatinine, Blood 2.81 mg/dL (0.60-1.20); Glomerular Filtration Rate 24 (60-); Glucose, Blood 170 mg/dL (70-99); Phosphorus, Blood 5.1 mg/dL (2.5-4.9); Sodium, Blood 138 mmol/L (136-145)
--- NOTE | 2020-09-25 05:54 | NUR ---
SUMMARY PTS H/H BEGINNING TO TREND UP THIS AM.PT AND PLEASED. PT HAD 1 SMALL PELLETED BROWN MUCOUSY BM TONIGHT. NO VISIBLE BLOOD NO TARRY APPEARANCE.
[2020-09-25 10:57] LABS: Hematocrit 22.2 % (37.0-53.0); Hemoglobin 7.4 g/dL (13.5-17.5)
--- NOTE | 2020-09-25 17:55 | NUR ---
PT RESTING IN BED IN CHAIR AFTER DINNER AND MEDICATION ADMIN. PT MAKES NO C/O PAIN OR SOB AT THIS TIME. PT VI IV INFILTRATED DURRING SHIFT AND NEW LINE WAS PLACED IN L HAND AND WNL. PT ALERT AND ORIENTED AND AMBULATES WITH STANDBY. STAFF WILL CONT. TO MONITOR.
[2020-09-25 23:02] LABS: Hemoglobin 7.4 g/dL (13.5-17.5)
--- NOTE | 2020-09-25 23:18 | NUR ---
09/25/20 2320 RN called pt's per his request about Hgb/Hct results just done. THANKED RN FOR CALLING HER. Pt sleeping at this time.
[2020-09-26 04:57] LABS: BASOPHILS ABSOLUTE AUTO 0.06 K/mm3 (0.00-0.23); BASOPHILS PERCENT AUTO 1 % (0-2); EOSINOPHILS ABSOLUTE AUTO 0.23 K/mm3 (0.00-0.68); EOSINOPHILS PERCENT AUTO 2 % (0-6); Hemoglobin 7.4 g/dL (13.5-17.5); IMMATURE GRAN ABSOLUTE AUTO 0.15 K/mm3 (0.00-0.10); IMMATURE GRAN PERCENT AUTO 2 % (0-1); LYMPHOCYTES ABSOLUTE AUTO 1.36 K/mm3 (0.84-5.20); LYMPHOCYTES PERCENT AUTO 14 % (21-46); MONOCYTES ABSOLUTE AUTO 0.77 K/mm3 (0.16-1.47); MONOCYTES PERCENT AUTO 8 % (4-13); Mean Corpuscular HGB 30.1 pg (26.0-34.0); Mean Corpuscular HGB Conc 33.6 g/dL (31.5-36.5); Mean Corpuscular Volume 89 fL (80-100); Mean Platelet Volume 9.7 fL (9.1-12.4); NEUTROPHILS ABSOLUTE AUTO 7.52 K/mm3 (1.96-9.15); NEUTROPHILS PERCENT AUTO 75 % (41-73); Platelet Count 441 K/mm3 (150-400); RDW Standard Deviation 45.7 fL (35.1-46.3); Red Blood Cell Count 2.46 M/mm3 (4.30-5.90); White Blood Cell Count 10.09 K/mm3 (4.00-11.30)
[2020-09-26 05:21] LABS: Bun/Creatinine Ratio 30.8 (12.0-20.0); Calcium, Blood 8.5 mg/dL (8.5-10.1); Creatinine, Blood 2.73 mg/dL (0.60-1.20); Potassium, Blood 4.1 mmol/L (3.5-5.5)
--- NOTE | 2020-09-26 06:50 | NUR ---
09/26/20 0600 PT SLEPT ALL NIGHT INLOUNGE CHAIR BED WAS TOO UNCOMFORTABLE FOR HIS BACK. VITALS BETTER THIS AM. MEDICATED TWICE FOR PAIN WITH RELIEF. K-PAD TO BACK FOR COMFORT WELL. VOIDING QS IN TOILET.
--- NOTE | 2020-09-26 18:13 | NUR ---
PT DISCHARGED VIA WHEELCHAIR AND ALERT AND ORIENTED. PT EDUCATED ON FU APPOINTMENTS NEEDED, MEDICATIONS FAXED TO PHARMACY, IV LINE DC'D AND WNL. PT BELONGINGS ON SELF AND PT EDUCATED ON SS TO WATCH OUT FOR.
== END 2020-09-26 18:04 | disposition home or self-care (01) | DRG 637 ==
LOC: ER 18:07 → MEDS 22:52 → ICUW 23:19 → MEDS 23:19 → ICUW 23:21 → MEDS 09-18 17:23
PROVIDERS: Emergency Medicine; Family Medicine; Hospitalist; Internal Medicine; Physician Assistant; ADMIT Internal Medicine
DX: E10.10 Type 1 diabetes mellitus with ketoacidosis without coma (principal); N17.0 Acute kidney failure with tubular necrosis; E87.1 Hypo-osmolality and hyponatremia; N18.4 Chronic kidney disease, stage 4 (severe); N39.0 Urinary tract infection, site not specified; R78.81 Bacteremia; K92.2 Gastrointestinal hemorrhage, unspecified; N25.81 Secondary hyperparathyroidism of renal origin; I12.9 Hypertensive chronic kidney disease with stage 1 through stage 4 chronic kidney disease, or unspecified chronic kidney disease; E04.2 Nontoxic multinodular goiter; B95.61 Methicillin susceptible Staphylococcus aureus infection as the cause of diseases classified elsewhere; E10.22 Type 1 diabetes mellitus with diabetic chronic kidney disease; Z20.828 Contact with and (suspected) exposure to other viral communicable diseases; M79.5 Residual foreign body in soft tissue; M75.51 Bursitis of right shoulder; Z86.718 Personal history of other venous thrombosis and embolism; Z79.01 Long term (current) use of anticoagulants; Z91.14 Patient's other noncompliance with medication regimen; D63.1 Anemia in chronic kidney disease; E53.8 Deficiency of other specified B group vitamins; K57.30 Diverticulosis of large intestine without perforation or abscess without bleeding; E10.40 Type 1 diabetes mellitus with diabetic neuropathy, unspecified; Z85.46 Personal history of malignant neoplasm of prostate
CPT/HCPCS: 36415; 36430; 71046; 73130; 74176; 76882; 78278; 80048; 80053; 80069; 80202; 81001; 82010; 82607; 82728; 82746; 82803; 82947; 83540; 83550; 83605; 83735; 83880; 84100; 84443; 84484; 85014; 85018; 85025; 85610; 85651; 86140; 86850; 86900; 86901; 86923; 87040; 87077; 87086; 87147; 87186; 88237; 88261; 88280; 93005; 93010; 93306; 96365; 97110; 97116; 97162; 97530; 99285-25; A9270; A9270-GY; A9560; C9113; J0690; J0696; J0881; J1815; J3370; J7030; J7042; J7050; P9016

== ENCOUNTER 2020-12-15 06:34 | Day surgery (SDC) | payer MEDICARE, OTHER ==
[~2020-12-15] VITALS: Ht 177.8 cm; Wt 116.5 kg
[~2020-12-15 06:34] MED LIST changes: +ARANESP SC; +CALC.25 PO; +CLIN150 PO; +ERGO400 PO; +GLUCHON PO; +METO25ER PO; +VITAMIN D3400 UNI1 PO
== END 2020-12-15 08:45 | disposition home or self-care (01) ==
LOC: ORSCSDS 06:34
PROVIDERS: Internal Medicine Gastroenterology
PROC: 0DB58ZX Excision of Esophagus, Via Natural or Artificial Opening Endoscopic, Diagnostic (ICD-10-PCS; principal; 2020-12-15 08:00)
PROC: 0DB68ZX Excision of Stomach, Via Natural or Artificial Opening Endoscopic, Diagnostic (ICD-10-PCS; principal; 2020-12-15 08:00)
DX: K92.1 Melena (principal); D64.9 Anemia, unspecified; K44.9 Diaphragmatic hernia without obstruction or gangrene; K29.70 Gastritis, unspecified, without bleeding; N18.4 Chronic kidney disease, stage 4 (severe); E11.9 Type 2 diabetes mellitus without complications; I10 Essential (primary) hypertension; E78.5 Hyperlipidemia, unspecified; Z79.82 Long term (current) use of aspirin; Z79.4 Long term (current) use of insulin; Z79.899 Other long term (current) drug therapy
CPT/HCPCS: 82947; 88305; 88312; 88342; J0330; J0461; J2405; J2704; J7120